=== PATIENT | female | born 1980 | race Caucasian/White ===

== ENCOUNTER → 2016-10-02 | Outpatient (CLI) | payer OTHER ==
[2016-02-23 03:01] VITALS: BP 155/89
[~2016-10-02] MED LIST: CETI10TA22 PO; FAMO40TA4 PO; LEVO75TA PO; METF10002 PO; NORE-69 PO; NORE1TAB26 PO
== END | disposition home or self-care (01) ==
LOC: LAB 07:33
PROVIDERS: ATTEND Nurse Practitioner
DX: E03.8 Other specified hypothyroidism (principal)
CPT/HCPCS: 84443

== ENCOUNTER → 2016-10-22 | Outpatient (CLI) | payer OTHER ==
[2016-02-23 03:01] VITALS: BP 155/89
[2016-10-22 13:27] LABS: BASO # 0.1 x10^3/uL (0.0-0.2); BASO % 1 % (0-3); EOS # 0.1 x10^3/uL (0.0-0.7); EOS % 2 % (0-3); HEMATOCRIT 45.4 % (36.0-47.0); HEMOGLOBIN 15.1 g/dL (12.0-15.5); LYMPH # 1.3 x10^3/uL (1.0-4.8); LYMPH % 21 % (24-48); MEAN CORPUSCULAR HEMOGLOBIN 30 pg (25-35); MEAN CORPUSCULAR HGB CONC 33 g/dL (31-37); MEAN CORPUSCULAR VOLUME 91 fL (79-100); MONO # 0.5 x10^3/uL (0.0-1.1); MONO % 8 % (0-9); NEUT # 4.3 x10^3uL (1.8-7.7); NEUT % 68 % (31-73); PLATELET COUNT 330 x10^3/uL (140-400); RED BLOOD COUNT 4.99 x10^6/uL (3.50-5.40); RED CELL DISTRIBUTION WIDTH 12.8 % (11.5-14.5); WHITE BLOOD COUNT 6.4 x10^3/uL (4.0-11.0)
== END | disposition home or self-care (01) ==
LOC: LAB 09:14
PROVIDERS: ATTEND Nurse Practitioner
DX: L65.9 Nonscarring hair loss, unspecified (principal)
CPT/HCPCS: 36415; 82728; 83540; 83550; 85027

== ENCOUNTER → 2016-11-21 | Outpatient (CLI) | payer OTHER ==
[2016-02-23 03:01] VITALS: BP 155/89
[2016-11-25 12:10] LABS: TESTOSTERONE FREE 0.18 ng/dL (0.10-0.85); TESTOSTERONE TOTAL 15 ng/dL (8-48)
== END | disposition home or self-care (01) ==
LOC: LAB 10:11
PROVIDERS: ATTEND Obstetrics & Gynecology
DX: L65.9 Nonscarring hair loss, unspecified (principal)
CPT/HCPCS: 36415; 84402; 84403

== ENCOUNTER → 2016-11-21 | Outpatient (CLI) | payer OTHER ==
[2016-02-23 03:01] VITALS: BP 155/89
[2016-11-21 19:50] LABS: FREE T4 1.48 ng/dL (0.76-1.46); THYROID STIM HORMONE (TSH) 0.997 uIU/mL (0.358-3.740)
[2016-11-21 23:07] LABS: T3 TOTAL 95 ng/dL (71-180); THYROPEROXIDASE ANTIBODY 126 IU/mL (0-34); THYROXINE 11.4 ug/dL (4.5-12.0)
== END | disposition home or self-care (01) ==
LOC: LAB 09:22
PROVIDERS: ATTEND Nurse Practitioner
DX: E03.8 Other specified hypothyroidism (principal); L65.9 Nonscarring hair loss, unspecified
CPT/HCPCS: 36415; 84436; 84439; 84443; 84480; 84481; 86376

== ENCOUNTER → 2016-12-21 | Outpatient (CLI) | payer OTHER ==
[2016-02-23 03:01] VITALS: BP 155/89
--- NOTE | 2016-12-21 14:33 | RAD ---
Indication: Thyromegaly. Both lobes of the thyroid gland are enlarged. The right lobe measures 5.7 x 1.9 x 2.1 cm and the left lobe measures 5.9 x 1.8 x 2.0 cm. Both lobes show marked parenchymal heterogeneity. No discrete or dominant thyroid mass is identified. The isthmus is 5 mm in thickness. Impression: Thyromegaly and heterogeneity. No discrete or dominant thyroid mass is detected.
== END | disposition home or self-care (01) ==
LOC: US 12:25
PROVIDERS: ATTEND Internal Medicine Endocrinology, Diabetes & Metabolism
DX: E01.0 Iodine-deficiency related diffuse (endemic) goiter (principal)
CPT/HCPCS: 76536

== ENCOUNTER → 2016-12-31 | Outpatient (CLI) | payer OTHER ==
[2016-02-23 03:01] VITALS: BP 155/89
[2016-12-31 15:12] LABS: FREE T4 1.29 ng/dL (0.76-1.46); THYROID STIM HORMONE (TSH) 3.181 uIU/mL (0.358-3.740)
== END | disposition home or self-care (01) ==
LOC: LAB 07:30
PROVIDERS: ATTEND Internal Medicine Endocrinology, Diabetes & Metabolism
DX: E01.0 Iodine-deficiency related diffuse (endemic) goiter (principal)
CPT/HCPCS: 36415; 84439; 84443; 84480

== ENCOUNTER → 2017-01-15 | Outpatient (CLI) | payer OTHER ==
[2016-02-23 03:01] VITALS: BP 155/89
[2017-01-15 09:19] LABS: ALBUMIN 3.5 g/dL (3.4-5.0); ALBUMIN/GLOBULIN RATIO 0.9 (1.0-1.7); CALCIUM 8.9 mg/dL (8.5-10.1); CREATININE 0.8 mg/dL (0.6-1.0); GFR 79.9; POTASSIUM 3.5 mmol/L (3.5-5.1); TOTAL BILIRUBIN 0.5 mg/dL (0.2-1.0); TOTAL PROTEIN 7.6 g/dL (6.4-8.2)
[2017-01-15 19:08] LABS: DHEA SO4 85.2 ug/dL (57.3-279.2); ESTRADIOL LEVEL 50.2 pg/mL (.); FSH 25.8 mIU/mL (.); LUTEINIZING HORMONE 20.2 mIU/mL (.); PROLACTIN 13.9 ng/mL (4.8-23.3)
[2017-01-16 09:13] LABS: INSULIN LEVEL 12.4 uIU/mL (2.6-24.9)
== END | disposition home or self-care (01) ==
LOC: LAB 07:35
PROVIDERS: ATTEND Internal Medicine Endocrinology, Diabetes & Metabolism
DX: E28.2 Polycystic ovarian syndrome (principal)
CPT/HCPCS: 36415; 80053; 80061; 82627; 82670; 83001; 83002; 83525; 84146; 84403

== ENCOUNTER → 2017-03-08 | Outpatient (CLI) | payer OTHER ==
[2016-02-23 03:01] VITALS: BP 155/89
== END | disposition home or self-care (01) ==
LOC: LAB 08:41
PROVIDERS: ATTEND Family Medicine
DX: E03.8 Other specified hypothyroidism (principal)
CPT/HCPCS: 84443

== ENCOUNTER → 2017-03-22 | Outpatient (CLI) | payer OTHER ==
[2016-02-23 03:01] VITALS: BP 155/89
[2017-03-22 13:41] LABS: FREE T4 1.22 ng/dL (0.76-1.46); THYROID STIM HORMONE (TSH) 4.588 uIU/mL (0.358-3.740)
[2017-03-23 04:09] LABS: RHEUMATOID FACTOR <10.0 IU/mL (0.0-13.9)
== END | disposition home or self-care (01) ==
LOC: LAB 08:35
PROVIDERS: ATTEND Family Medicine
DX: E03.8 Other specified hypothyroidism (principal); M25.50 Pain in unspecified joint
CPT/HCPCS: 36415; 84439; 84443; 85651; 86431

== ENCOUNTER → 2017-05-12 | Outpatient (CLI) | payer OTHER ==
[2016-02-23 03:01] VITALS: BP 155/89
[2017-05-12 14:05] LABS: FREE T4 1.35 ng/dL (0.76-1.46); THYROID STIM HORMONE (TSH) 1.982 uIU/mL (0.358-3.740)
[2017-05-13 03:06] LABS: HEMOGLOBIN A1C 5.1 % (4.8-5.6)
== END | disposition home or self-care (01) ==
LOC: LAB 08:49
PROVIDERS: ATTEND Internal Medicine Endocrinology, Diabetes & Metabolism
DX: E06.3 Autoimmune thyroiditis (principal); E03.8 Other specified hypothyroidism; L65.9 Nonscarring hair loss, unspecified; R53.82 Chronic fatigue, unspecified; R79.89 Other specified abnormal findings of blood chemistry
CPT/HCPCS: 36415; 82306; 83036; 84439; 84443

== ENCOUNTER → 2017-07-07 | Outpatient (CLI) | payer OTHER ==
[2016-02-23 03:01] VITALS: BP 155/89
[2017-07-07 11:57] LABS: FREE T4 1.25 ng/dL (0.76-1.46); THYROID STIM HORMONE (TSH) 2.286 uIU/mL (0.358-3.740)
== END | disposition home or self-care (01) ==
LOC: LAB 08:49
PROVIDERS: ATTEND Internal Medicine Endocrinology, Diabetes & Metabolism
DX: E06.3 Autoimmune thyroiditis (principal); L65.9 Nonscarring hair loss, unspecified; E03.8 Other specified hypothyroidism; R53.82 Chronic fatigue, unspecified
CPT/HCPCS: 84439; 84443

== ENCOUNTER → 2017-09-22 | Outpatient (CLI) | payer OTHER ==
[2016-02-23 03:01] VITALS: BP 155/89
[2017-09-22 11:41] LABS: CALCIUM 9.2 mg/dL (8.5-10.1); CREATININE 0.8 mg/dL (0.6-1.0); GFR 79.9; POTASSIUM 3.6 mmol/L (3.5-5.1)
== END | disposition home or self-care (01) ==
LOC: LAB 08:39
PROVIDERS: ATTEND Family Medicine
DX: R25.2 Cramp and spasm (principal)
CPT/HCPCS: 36415; 80048

== ENCOUNTER → 2017-11-10 | Outpatient (CLI) | payer OTHER ==
[2016-02-23 03:01] VITALS: BP 155/89
[~2017-11-10] MED LIST changes: -METF10002 PO; +METF10003 PO
[2017-11-10 11:34] LABS: BASO # 0.1 x10^3/uL (0.0-0.2); BASO % 1 % (0-3); EOS # 0.2 x10^3/uL (0.0-0.7); EOS % 3 % (0-3); HEMATOCRIT 42.8 % (36.0-47.0); HEMOGLOBIN 14.7 g/dL (12.0-15.5); LYMPH # 1.3 x10^3/uL (1.0-4.8); LYMPH % 21 % (24-48); MEAN CORPUSCULAR HEMOGLOBIN 31 pg (25-35); MEAN CORPUSCULAR HGB CONC 34 g/dL (31-37); MEAN CORPUSCULAR VOLUME 90 fL (79-100); MONO # 0.4 x10^3/uL (0.0-1.1); MONO % 7 % (0-9); NEUT % 67 % (31-73); PLATELET COUNT 308 x10^3/uL (140-400); RED BLOOD COUNT 4.77 x10^6/uL (3.50-5.40); RED CELL DISTRIBUTION WIDTH 12.8 % (11.5-14.5); WHITE BLOOD COUNT 5.9 x10^3/uL (4.0-11.0)
[2017-11-10 11:38] LABS: C REACTIVE PROTEIN 26.5 mg/L (0-3.3); CALCIUM 8.8 mg/dL (8.5-10.1); CREATININE 0.7 mg/dL (0.6-1.0); GFR 93.2; POTASSIUM 3.5 mmol/L (3.5-5.1)
[2017-11-10 12:38] LABS: SEDIMENTATION RATE 13 (0-25)
[2017-11-12 18:09] LABS: ANA INTERP Negative (.)
== END | disposition home or self-care (01) ==
LOC: LAB 08:35
PROVIDERS: ATTEND Family Medicine
DX: E03.9 Hypothyroidism, unspecified (principal)
CPT/HCPCS: 36415; 80048; 84443; 85025; 85651; 86038; 86140

== ENCOUNTER 2018-02-20 10:44 | Emergency (ER) | payer OTHER ==
[~2018-02-20] VITALS: Ht 165.1 cm; Wt 79.8 kg
[~2018-02-20 10:44] MED LIST changes: -METF10003 PO; +METF10007 PO
--- NOTE | 2018-02-20 11:16 | EKG ---
[address] [address] Test Date: 2018-02-20 Test Time: 11:14:34 Pat Name: DRAKE VARGAS Department: Room: Gender: F Home Health Clinical Liaison: : 1980 Requested By: LOGAN ISAAC Order Number: [id number] Reading MD: Gonsalo Bhagat MD Measurements Intervals [place] Rate: 66 P: CO: QRS: 26 QRSD: 138 T: 11 QT: 438 QTc: 461 Interpretive Statements SR Electronically Signed On 02-21-2018 10:49:17 CDT by Gonsalo Bhagat MD
--- NOTE | 2018-02-20 11:28 | PHYS DOC ---
Past History Past Medical History: Hypothyroid Additional Past Medical Histor: PCOS Past Surgical History: Smoking: Non-smoker Alcohol Use: None Drug Use: None Adult General Chief Complaint Chief Complaint: MULTIPLE COMPLAINTS [facility] 38-year-old female presents with episodes of altered mental status. Patient states that she was working on her computer last night around 10 PM when she began to feel weird. She describes this feeling as a tingling warm sensation over her chest. She became a little bit diaphoretic and felt as though she might pass out. She did not lose consciousness. She was having difficulty remembering the names of her students when she is looking at the pictures. (She is a teacher.) At this time, the patient still does not remember most of what happened during this episode. Her states that her memory loss episode lasted for about 90 minutes. This morning the patient is able to identify all of her students without difficulty. She has had no difficulty with mentation except for her memory. Patient admits to having intermittent episodes where she feels like she has a rapid heart rate. She has never measured a rapid rate. She is on metoprolol for the last 3 weeks for migraine prophylaxis. Patient has autoimmune disorders and is on a combination of atypical medications such as doxycycline 150 mg, steroid injections in her scalp, levothyroxin, metoprolol. The only recent changes she increased her doxycycline from 50 mg to 150 mg. Denies alcohol or drug use. Denies fever, chills, shortness of breath, nausea, vomiting, diarrhea. Review of Systems Review of Systems Constitutional: Denies fever or chills [] Eyes: Denies change in visual acuity, redness, or eye pain [] HENT: Denies nasal congestion or sore throat [] Respiratory: Denies cough or shortness of breath [] Cardiovascular: No additional information not addressed in HPI [] GI: Denies abdominal pain, nausea, vomiting, bloody stools or diarrhea [] : Denies dysuria or hematuria [] Musculoskeletal: Denies back pain or joint pain [] Integument: Denies rash or skin lesions [] Neurologic: Memory loss [] Endocrine: Denies polyuria or polydipsia [] All other systems were reviewed and found to be within normal limits, except as documented in this note. Allergies Allergies Allergies Coded Allergies Type Severity Reaction Last Updated Verified No Known Drug Allergies 02/23/16 No Physical Exam Physical Exam Constitutional: Well developed, well nourished, no acute distress, non-toxic appearance. [] HENT: Normocephalic, atraumatic, bilateral external ears normal, oropharynx moist, no oral exudates, nose normal. [] Eyes: PERRLA, EOMI, conjunctiva normal, no discharge. [] Neck: Normal range of motion, no tenderness, supple, no stridor. [] Cardiovascular:Heart rate regular rhythm, no murmur [] Lungs & Thorax: Bilateral breath sounds clear to auscultation [] Abdomen: Bowel sounds normal, soft, no tenderness, no masses, no pulsatile masses. [] Skin: Warm, dry, no erythema, no rash. [] Back: No tenderness, no CVA tenderness. [] Extremities: No tenderness, no cyanosis, no clubbing, ROM intact, no edema. [] Neurologic: Alert and oriented X 3, normal motor function, normal sensory function, no focal deficits noted. [] Psychologic: Affect normal, judgement normal, mood normal. [] EKG EKG No definite P waves seen, rate 66, normal axis, no ST elevations or depressions. [] Radiology/Procedures Radiology/Procedures [] Impressions: EXAM: Head CT without contrast. HISTORY: Confusion. TECHNIQUE: Computed tomographic images of the head were obtained without contrast. *One or more of the following individualized dose reduction techniques were utilized for this examination: 1. Automated exposure control. 2. Adjustment of the mA and/or kV according to patient size. 3. Use of iterative reconstruction technique. COMPARISON: None. FINDINGS: There is no acute or subacute extra-axial or intraparenchymal hemorrhage. There is no mass effect or midline shift. There is no hydrocephalus. The polk-white matter differentiation pattern is intact. The visualized portions of the orbits, paranasal sinuses and mastoid air cells are unremarkable. No suspicious calvarial lesion is seen. IMPRESSION: No acute intracranial findings. Electronically signed by: Ewa Patel MD (02/20/2018 11:46 AM) [facility] DICTATED AND SIGNED BY: EWA PATEL MD DATE: 02/20/18 1145 CC: LOGAN ISAAC DO; VITALIY BENAVIDES DO ~ EXAM: Chest, 2 views. HISTORY: Weakness. COMPARISON: None. FINDINGS: 2 views of the chest are obtained. There is no infiltrate, pleural effusion or pneumothorax. The heart is normal in size. IMPRESSION: No acute pulmonary finding. Electronically signed by: Ewa Patel MD (02/20/2018 11:45 AM) [facility] DICTATED AND SIGNED BY: EWA PATEL MD DATE: 02/20/18 1145 CC: LOGAN ISAAC DO; VITALIY BENAVIDES DO ~ Course & Med Decision Making Course & Med Decision Making Pertinent Labs and Imaging studies reviewed. (See chart for details) Patient's EKG does not show P waves due to artifact. Her rhythm strip clearly shows P waves and a sinus rhythm. Chest x-rays unremarkable. Her head CT is unremarkable. Her labs are unremarkable. Her troponin is negative. Her urine drug screen is negative. I'm unsure what is causing the patient's symptoms. It is possible he is having short runs of atrial fibrillation or another arrhythmia. We have not seen any evidence here in the ED. Also possible this is anxiety reaction, though the patient has not had those episodes in the past. I will recommend that the patient follow up with her PCP and consider a Holter monitor or event monitor. She is stable for discharge at this time. [] Dragon Disclaimer Dragon Disclaimer This electronic medical record was generated, in whole or in part, using a voice recognition dictation system. Departure Departure: Referrals: VITALIY BENAVIDES DO (PCP) LOGAN ISAAC DO Feb 20, 2018 11:28
[2018-02-20 11:43] LABS: BASO % 1 % (0-3); EOS # 0.1 x10^3/uL (0.0-0.7); EOS % 1 % (0-3); HEMATOCRIT 43.4 % (36.0-47.0); HEMOGLOBIN 14.8 g/dL (12.0-15.5); LYMPH # 1.1 x10^3/uL (1.0-4.8); LYMPH % 14 % (24-48); MEAN CORPUSCULAR HEMOGLOBIN 31 pg (25-35); MEAN CORPUSCULAR HGB CONC 34 g/dL (31-37); MEAN CORPUSCULAR VOLUME 91 fL (79-100); MONO # 0.6 x10^3/uL (0.0-1.1); MONO % 7 % (0-9); NEUT # 6.1 x10^3uL (1.8-7.7); NEUT % 77 % (31-73); PLATELET COUNT 293 x10^3/uL (140-400); RED BLOOD COUNT 4.74 x10^6/uL (3.50-5.40); RED CELL DISTRIBUTION WIDTH 12.4 % (11.5-14.5); WHITE BLOOD COUNT 7.9 x10^3/uL (4.0-11.0)
--- NOTE | 2018-02-20 11:48 | RAD ---
EXAM: Chest, 2 views. HISTORY: Weakness. COMPARISON: None. FINDINGS: 2 views of the chest are obtained. There is no infiltrate, pleural effusion or pneumothorax. The heart is normal in size. IMPRESSION: No acute pulmonary finding. Electronically signed by: Ewa Pinto MD (02/20/2018 11:45 AM) [facility]
--- NOTE | 2018-02-20 11:49 | RAD ---
EXAM: Head CT without contrast. HISTORY: Confusion. TECHNIQUE: Computed tomographic images of the head were obtained without contrast. *One or more of the following individualized dose reduction techniques were utilized for this examination: 1. Automated exposure control. 2. Adjustment of the mA and/or kV according to patient size. 3. Use of iterative reconstruction technique. COMPARISON: None. FINDINGS: There is no acute or subacute extra-axial or intraparenchymal hemorrhage. There is no mass effect or midline shift. There is no hydrocephalus. The polk-white matter differentiation pattern is intact. The visualized portions of the orbits, paranasal sinuses and mastoid air cells are unremarkable. No suspicious calvarial lesion is seen. IMPRESSION: No acute intracranial findings. Electronically signed by: Ewa Pinto MD (02/20/2018 11:46 AM) [facility]
[2018-02-20 11:55] LABS: ALBUMIN 3.5 g/dL (3.4-5.0); ALBUMIN/GLOBULIN RATIO 0.9 (1.0-1.7); CALCIUM 8.8 mg/dL (8.5-10.1); CREATININE 0.8 mg/dL (0.6-1.0); GFR 79.4; MAGNESIUM 1.9 mg/dL (1.8-2.4); POTASSIUM 3.6 mmol/L (3.5-5.1); TOTAL BILIRUBIN 0.6 mg/dL (0.2-1.0); TOTAL PROTEIN 7.3 g/dL (6.4-8.2)
[2018-02-20 12:07] LABS: AMPHETAMINE/METHAMPHETAMINE NEG (NEG); BARBITURATES NEG (NEG); BENZODIAZEPINES NEG (NEG); CANNABINOIDS NEG (NEG); COCAINE NEG (NEG); METHADONE NEG (NEG); OPIATES NEG (NEG); PHENCYCLIDINE NEG (NEG)
[2018-02-20 12:09] LABS: COLOR,URINE YELLOW
[2018-02-20 12:10] LABS: BACTERIA,URINE FEW /HPF (0-FEW); BILIRUBIN,URINE NEG (NEG); CLARITY,URINE CLEAR; GLUCOSE,URINE NEG (NEG); NITRITE,URINE NEG (NEG); SQUAMOUS EPITHELIAL CELL,UR MOD /LPF; UROBILINOGEN,URINE 0.2 mg/dL (0.2 mg/dL)
[2018-02-20 12:45] VITALS: BP 125/75
== END 2018-02-20 13:22 | disposition home or self-care (01) ==
LOC: ER 10:44
DX: R41.82 Altered mental status, unspecified (principal); R20.2 Paresthesia of skin; R61 Generalized hyperhidrosis; E03.9 Hypothyroidism, unspecified
CPT/HCPCS: 36415; 70450; 71046; 80053; 80307; 81001; 83735; 84443; 84484; 85025; 93005; 99285; G0479

== ENCOUNTER → 2018-04-05 | Outpatient (CLI) | payer BC, OTHER ==
--- NOTE | 2018-04-05 16:45 | RAD ---
EXAM: Carotid Doppler sonogram. HISTORY: Memory loss. Hypertension, syncope. TECHNIQUE: Ayala scale and color Doppler sonographic evaluation of the neck with spectral waveform analysis was performed and static images are submitted for review. FINDINGS: RIGHT: The peak systolic velocity within the common carotid artery is 104 cm/sec. The peak systolic velocity within the internal carotid artery is 72 cm/sec and the end diastolic velocity within the internal carotid artery is 30 cm/sec. The ICA/CCA ratio is 0.69. Grayscale images demonstrate no grayscale stenosis. LEFT: The peak systolic velocity within the common carotid artery is 109 cm/sec. The peak systolic velocity within the internal carotid artery is 85 cm/sec and the end diastolic velocity within the internal carotid artery is 38 cm/sec. The ICA/CCA ratio is 0.78. Grayscale images demonstrate no grayscale stenosis. There is antegrade flow within both vertebral arteries. IMPRESSION: 1. No evidence of hemodynamically significant stenosis. PQRS Compliance Statement - Stenosis calculations for CT, MR and conventional angiography are based upon measurement of the distal ICA diameter in accordance with the NASCET methodology. Stenosis calculations for carotid ultrasound studies are derived from validated velocity criteria which are known to correlate with the NASCET methodology. Electronically signed by: Jose Antonio Allred MD (04/05/2018 4:42 PM) [facility]
== END | disposition home or self-care (01) ==
LOC: US 13:50
PROVIDERS: ATTEND Family Medicine
DX: R41.82 Altered mental status, unspecified (principal); R41.3 Other amnesia; I10 Essential (primary) hypertension; R55 Syncope and collapse
CPT/HCPCS: 93880